=== PATIENT | male | born 1965 | race Caucasian/White ===

== ENCOUNTER 2024-02-26 14:25 | Inpatient (IN) | payer SELFPAY ==
[2024-02-26] VITALS (13 sets, daily range): BP systolic 111–182; BP diastolic 61–123; PULSE 82–110; RESP 16–22; TEMP 36.9–38; O2SAT 92–98; BMI 50.2; BMI 42.3
--- NOTE | 2024-02-26 17:49 | CTR_ITS ---
PROCEDURE INFORMATION: Exam: CT Abdomen And Pelvis With Contrast Exam date and time: 02/26/2024 7:39 PM Age: 58 years old Clinical indication: Other: Abscess; Additional info: Abscess groin TECHNIQUE: Imaging protocol: Computed tomography of the abdomen and pelvis with contrast. Radiation optimization: All CT scans at this facility use at least one of these dose optimization techniques: automated exposure control; mA and/or kV adjustment per patient size (includes targeted exams where dose is matched to clinical indication); or iterative reconstruction. Contrast material: OMNI 350; Contrast volume: 100 ml; Contrast route: INTRAVENOUS (IV); COMPARISON: No relevant prior studies available. RADIATION DOSE METRICS: Total DLP (mGy-cm): 1825 FINDINGS: Liver: There is a diffuse decrease in hepatic parenchymal density, consistent with moderate fatty infiltration. There is no focal abnormality within the liver. Gallbladder and biliary ducts: The gallbladder is normal. Pancreas: The pancreas is normal. Spleen: The spleen is normal. Adrenal glands: The adrenal glands are normal. Kidneys and ureters: The kidneys are normal. There is no evidence of hydronephrosis. There is no evidence of renal or ureteral calcifications. Stomach and bowel: There is no evidence of colitis/diverticulitis. There is no evidence of intestinal obstruction. Appendix: Not identified Intraperitoneal space: There is no evidence of free intraperitoneal fluid. Vasculature: The aorta demonstrates mild atherosclerotic calcification. There is no evidence of an abdominal aortic aneurysm. Lymph nodes: There is some mildly prominent left inguinal lymph nodes measuring up to 11 x 17 mm, likely reactive lymph nodes. There is prominent left external iliac lymph node measuring 11 x 21 mm also likely reactive. Urinary bladder: Unremarkable as visualized. Reproductive: Unremarkable as visualized. Bones/joints: Unremarkable. No acute fracture. Soft tissues: There is some deep soft tissue gas in the left groin area extending into the thigh. Please see report of CT scan of the thigh below. PROCEDURE INFORMATION: Exam: CT Left Lower Extremity, Thigh Exam date and time: 02/26/2024 7:39 PM Age: 58 years old Clinical indication: Other: Abscess; Additional info: Abscess groin TECHNIQUE: Imaging protocol: CT of the left lower extremity with intravenous contrast was performed. Exam focused on the thigh. Radiation optimization: All CT scans at this facility use at least one of these dose optimization techniques: automated exposure control; mA and/or kV adjustment per patient size (includes targeted exams where dose is matched to clinical indication); or iterative reconstruction. COMPARISON: No relevant prior studies available. FINDINGS: Limitations: Lateral aspect of the distal left thigh is cut off including much of the distal left femur. Bones/joints: There is no evidence of fracture or dislocation. Soft tissues: There is some fluid along the deep investing fascia of the anteromedial aspect of the left thigh containing bubbles of air. This is worrisome for necrotizing deep soft tissue infection or necrotizing fasciitis. There is component of the air and fluid collection extending into the subcutaneous soft tissues more anteriorly as well as inflammatory density within the fat and skin thickening in keeping with some cellulitis. The area in question measures up to 7 cm in diameter and [address]/CT abdomen pelvis w con* [id number] IMPRESSION: 1. Left groin and thigh abscess. Please see CT thigh report below. 2. Fatty liver 3. No acute intra-abdominal finding. IMPRESSION: Findings worrisome for necrotizing fasciitis involving the left thigh. COMMENTS: 1. The left thigh which is included on this examination is grossly normal. 2. THIS REPORT CONTAINS FINDINGS THAT MAY BE CRITICAL TO PATIENT CARE. The findings were verbally communicated via telephone conference with ANGELINE MEDRANO at 9:13 PM CDT on 02/26/2024. The findings were acknowledged and understood.
--- NOTE | 2024-02-26 18:01 | ED_ITS ---
HPI - Skin/Abscess/Foreign Bdy 2 General: Chief complaint: Skin/Abscess/Foreign Body Stated complaint: boil that rupture (referral urgent care) Time Seen by Provider: 02/26/24 17:45 History of Present Illness: 58-year-old man with history of morbid o besity who presents emergency room with left inguinal and thigh pain and swelling with drainage. He has a very foul- smelling drainage. I do not see had definitive opening in this but he says it has been draining. He has a large area of induration on his left thigh just below the groin. This appears like it might be expanding up into the groin. Has a temp of 99 on presentation. No known fevers at home. No altered mental status. No focal motor deficits. This been present for about a week now and worsening. Related Data Home Medications Medication Instructions Recorded Confirmed No Known Home Medications 02/26/24 02/26/24 Allergies Allergy/AdvReac Type Severity Reaction Status Date / Time No Known Allergies Allergy Verified 02/26/24 13:38 Review of Systems 2 Narrative: Constitutional symptoms: Negative except as documented in HPI. Skin symptoms: Negative except as documented in HPI. Eye symptoms: Negative except as documented in HPI. ENMT symptoms: Negative except as documented in HPI. Respiratory symptoms: Negative except as documented in HPI. Cardiovascular symptoms: Negative except as documented in HPI. Gastrointestinal symptoms: Negative except as documented in HPI. Genitourinary symptoms: Negative except as documented in HPI. Musculoskeletal symptoms: Negative except as documented in HPI. Neurologic symptoms: Negative except as documented in HPI. Psychiatric symptoms: Negative except as documented in HPI. Endocrine symptoms: Negative except as documented in HPI. PFSH ED 2 PFSH: Social History Smoking and tobacco/nicotine status: never used tobacco/nicotine Physical Exam 2 Narrative: EXAM NARRATIVE: General: Alert, no acute distress. Skin: Warm, dry. In the left thigh and groin area there is a large area of induration redness swelling. Foul-smelling. No obvious drainage at this time. Head: Normocephalic, atraumatic. Neck: Supple, trachea midline. Eye: Extraocular movements are intact. Ears, nose, mouth and throat: mucosa moist. Cardiovascular: Regular, Normal peripheral perfusion. Respiratory: Lungs are clear to auscultation, respirations are non-labored, breath sounds are equal, Symmetrical chest wall expansion. Gastrointestinal: Soft, Nontender, Non distended Musculoskeletal: Normal ROM, no deformity. Neurological: Alert and oriented, No focal neurological deficit observed. Psychiatric: Cooperative, appropriate mood & affect. Course 2 Vital Signs: Vital signs: Vital Signs Temperature 99.0 F 02/26/24 14:30 Pulse Rate 82 02/26/24 19:17 Respiratory Rate 16 02/26/24 19:17 Blood Pressure 133/105 02/26/24 19:17 Pulse Oximetry 92 02/26/24 19:17 Oxygen Delivery Me thod Room Air 02/26/24 19:17 MDM - Skin/Abscess/Foreign Bdy Medicial Decision Making Medical decision making: Differential diagnosis including but not limited to and based on the above HPI, review of systems and physical exam: I have concern for sepsis, cellulitis, abscess, Karan's gangrene. Orders placed to evaluate differential diagnosis based on the above differential, HPI and physical exam Lab Review: Laboratory results were reviewed and interpreted by myself the emergency room physician. Leukocytosis with a white count of 14,000. BUN/creatinine are normal. Sodium is little low at 130. Lactic acid is 2.2. Liver enzymes are normal. CRP is very elevated at 255. CT of the abdomen pelvis and thigh shows a large area of induration with air pockets. This was reviewed and interpreted by myself the emergency room physician. I also reviewed the radiology report. I reviewed the patient's medical record. Reexamination: Patient has remained stable. No increased work of breathing. No altered mental status. Consultation: I spoke with Dr. Metzger who is taken the patient to the OR for incision and drainage. Assessment and plan: Inguinal abscess ?IV vancomycin, IV cefepime, IV normal saline bolus as the patient is n.p.o. at this time and going to surgery. -I discussed the patient with the hospitalist on-call who is admitting the patient. - Discussed findings and plan with patient. Answered any questions. - All laboratory values were reviewed and interpreted personally by myself, the ER physician - All imaging was reviewed and interpreted personally by myself, the ER physician. - Evaluation and treatment of this problem were appropriate in the emergency setting Lab Data 02/26/24 18:04 02/26/24 18:04 Laboratory Results WBC 13.93 10^3/uL (3.29-11.43) H 02/26/24 18:04 RBC 4.77 10^6/uL (3.85-5.65) 02/26/24 18:04 Hgb 13.10 g/dL (11.27-16.99) 02/26/24 18:04 Hct 41.9 % (37-53) 02/26/24 18:04 MCV 87.8 fl (82-101) 02/26/24 18:04 MCH 27.5 pg (27-33) 02/26/24 18:04 MCHC 31.3 g/dL (30-55) 02/26/24 18:04 RDW 13.9 % (12.1-15.1) 02/26/24 18:04 Plt Count 482 10^3/cmm (157-399) H 02/26/24 18:04 MPV 11.2 fL (7.4-10.4) H 02/26/24 18:04 Neut % (Auto) 62.5 % 02/26/24 18:04 Lymph % (Auto) 17.9 % 02/26/24 18:04 Yell % (Auto) 11.0 % 02/26/24 18:04 Eos % (Auto) 0.9 % 02/26/24 18:04 Baso % (Auto) 0.9 % 02/26/24 18:04 Neut # (Auto) 8.71 10^3/uL (1.8-7.7) H 02/26/24 18:04 Lymph # (Auto) 2.5 10^3/uL (0.8-4.8) 02/26/24 18:04 Yell # (Auto) 1.5 10^3/uL (0.2-0.9) H 02/26/24 18:04 Eos # (Auto) 0.1 10^3/uL (0.0-0.8) 02/26/24 18:04 Baso # (Auto) 0.1 10^3/uL (0.0-0.1) 02/26/24 18:04 Nucleated RBC % (auto) 0 % 02/26/24 18:04 Nucleated RBCs # 0.0 /100WBC 02/26/24 18:04 ESR 90 mm/hr (0-10) H 02/26/24 18:04 Sodium 130 mmol/L (136-145) L 02/26/24 18:04 Potassium 4.0 mmol/L (3.5-5.1) 02/26/24 18:04 Chloride 92 mmol/L (98-107) L 02/26/24 18:04 Carbon Dioxide 26 mmol/L (22-29) 02/26/24 18:04 Anion Gap 16.0 (5-19) 02/26/24 18:04 BUN 12 mg/dL (6-20) 02/26/24 18:04 Creatinine 0.8 mg/dL (0.7-1.2) 02/26/24 18:04 GFR Calculation 100.0 mL/min (90-130) 02/26/24 18:04 Glucose 126 mg/dL (65-115) H 02/26/24 18:04 Calculated Osmolality 271 mOsm/kg (285-295) L 02/26/24 18:04 Lactic Acid 2.2 mmol/L (0.5-2.2) 02/26/24 18:04 Calcium 8.2 mg/dL (8.5-10.5) L 02/26/24 18:04 Total Bilirubin 0.5 mg/dL (0.15-1.2) 02/26/24 18:04 AST 30 U/L (0-40) 02/26/24 18:04 ALT 38 U/L (0-41) 02/26/24 18:04 Alkaline Phosphatase 79 U/L (40-130) 02/26/24 18:04 C-Reactive Protein 254.6 mg/L (0.0-4.9) H 02/26/24 18:04 Total Protein 7.1 g/dL (6.6-8.7) 02/26/24 18:04 Albumin 2.9 g/dL (3.5-5.2) L 02/26/24 18:04 Globulin 4.2 g/dL (1.3-4.6) 02/26/24 18:04 XR interpretation done by ED provider, pending radiology final review Discharge Plan Discharge Patient Disposition: Admitted As Inpatient Admit Provider: Juan Dumont Clinical Impression: Inguinal abscess, Morbid obesity Condition: Stable Coding Level of Care Code ED Events Associate for Jose De La Torre
[2024-02-26 18:22] LABS: Basophils # 0.1 10^3/uL (0.0-0.1); Basophils % 0.9 %; Eosinophils # 0.1 10^3/uL (0.0-0.8); Eosinophils % 0.9 %; Hematocrit 41.9 % (37-53); Lymphocytes # 2.5 10^3/uL (0.8-4.8); Lymphocytes % 17.9 %; Mean Corpuscular HGB Conc 31.3 g/dL (30-55); Mean Corpuscular Hemoglobin 27.5 pg (27-33); Mean Corpuscular Volume 87.8 fl (82-101); Mean Platelet Volume 11.2 fL (7.4-10.4); Monocytes # 1.5 10^3/uL (0.2-0.9); Neutrophils # 8.71 10^3/uL (1.8-7.7); Neutrophils % 62.5 %; Nucleated Red Blood Cells % 0 %; Platelet Count 482 10^3/cmm (157-399); Red Blood Count 4.77 10^6/uL (3.85-5.65); Red Cell Distribution Width 13.9 % (12.1-15.1); White Blood Count 13.93 10^3/uL (3.29-11.43)
[2024-02-26 18:31] LABS: Alanine Aminotransferase 38 U/L (0-41); Albumin Level 2.9 g/dL (3.5-5.2); Alkaline Phosphatase 79 U/L (40-130); Aspartate Amino Transferase 30 U/L (0-40); Blood Urea Nitrogen 12 mg/dL (6-20); C Reactive Protein 254.6 mg/L (0.0-4.9); Calcium 8.2 mg/dL (8.5-10.5); Carbon Dioxide 26 mmol/L (22-29); Chloride 92 mmol/L (98-107); Creatinine Clr Calc Pharmacy 161.1418; Globulin 4.2 g/dL (1.3-4.6); Glucose 126 mg/dL (65-115); Osmolality Calculated 271 mOsm/kg (285-295); Sodium 130 mmol/L (136-145); Total Bilirubin 0.5 mg/dL (0.15-1.2); Total Protein 7.1 g/dL (6.6-8.7)
[2024-02-26 18:32] LABS: Lactic Sepsis W/Reflex 2.2 mmol/L (0.5-2.2)
[2024-02-26 18:52] LABS: Slide Review Slide Review Perform
[2024-02-26 18:59] LABS: Erythrocyte Sedimentation Rate 90 mm/hr (0-10)
--- NOTE | 2024-02-26 19:20 | PC.NURSE ---
meds late due to needing an u/s iv
[2024-02-26] MEDS: cefepime 2,000 MG in sodium chloride 0.9% (plus) 50 ML 100 MG IV (19:50)
[2024-02-26] MEDS: vancomycin 1,500 MG/300 ML PIGGYBACK 200 MG IV (19:50)
[2024-02-26] MEDS: iohexol 350 mg/mL 500 mL Btl (per mL) IV (19:52)
[2024-02-26 19:57] LABS: Reflex Lactate Order REFLEX LACTIC ORDERD
--- NOTE | 2024-02-26 20:25 | P.HP_ITS ---
Providers/Chief Complaint 2 Chief Complaint: boil that rupture (referral urgent care) History of Present Illness Wero Hurd is a 58 year old male with history of morbid obesity but no other medical problems who presents to the ER complaining of boil in the left groin/left thigh, patient notices the boils about 9 days ago for the last 2 to 3 days he has been taking doxycycline that he had a from a previous prescription, it has been draining and has been getting worse and therefore he decided to present. In the ED workup showed evidence of elevated CRP elevated white count and a CT scan that showed evidence of extensive soft tissue stranding with there in the soft tissue of the left upper thigh tracking to the level of the groin and in the lower aspect to the middle third of the thigh. Review of Systems 2 General: Reports: 10 or more systems reviewed and unremarkable except in HPI and below Medications/Allergies Home Medications Medication Instructions Recorded Confirmed Last Taken Type No Known Home Medications 02/26/24 02/26/24 Unknown History Allergies Allergy/AdvReac Type Severity Reaction Status Date / Time No Known Allergies Allergy Verified 02/26/24 13:38 PFSH Acute 2 PFSH: Social History Smoking and tobacco/nicotine status: never used tobacco/nicotine Vitals/I&O/Wt Last Vital Signs Temp 99.0 F 02/26/24 14:30 Pulse 82 02/26/24 19:17 Resp 16 02/26/24 19:17 BP 133/105 02/26/24 19:17 Pulse Ox 92 02/26/24 19:17 O2 Del Method Room Air 02/26/24 19:17 Weight last 48 hrs Weight 360 lb Physical Exam 2 Narrative: General : Patient is well developed , no acute distress, oriented x3 Head : Normal cephalic, a-traumatic. Nose : Mucous membranes are without erythema. Lungs : Equal chest rise bilaterally, no use of accessory muscles, trachea is midline. CV : Rate and rhythm are normal. Abdomen : Soft, ND, NT, no g/r/m Extremities : Left lower extremity there is erythema and edema on an area of about 15 x 15 cm at the level of the left side where it joins with the groin. There are some fluctuance at that level. Back : non-tender to palpation, no CVA tenderness. Data 02/26/24 18:04 10/10/24 18:04 Micro: Microbiology 02/26/24 19:35 Blood Culture - Preliminary Blood SPECIMEN COLLECTED 02/26/24 19:38 Blood Culture - Preliminary Blood SPECIMEN COLLECTED A&P Assessment and plan (1) Inguinal abscess: (2) Soft tissue infection: Plan After complete history, physical examination and review of all available l clinical data the following is my assessment. This a 58-year-old male with morbid obesity who presents with soft tissue infection of the left groin, there is concern for the possibility of gas-forming organisms as there is extensive soft tissue air and only a small puncture noted on the mid portion of the thigh in physical examination. White count is 13 CRP is more than 200. With this findings I think it will be imperative to proceed to the operating room for wide debridement and washout of this area. I discussed all recent benefits with the patient including the risk of injury to adjacent structures including the great saphenous vein, neurovascular bundle to the leg, musculature, nerves, need for additional interventions, progressing necrotizing infection, sepsis, need for long-term antibiotics, poor wound healing, recurrent infection. Patient shows understanding and wishes to proceed. We will immediately proceed to the OR, patient will receive broad-spectrum antibiotics and will remain as inpatient after surgery. -On-call to OR -Pain control as needed -Broad-spectrum antibiotics -Morning labs -Will likely obtain infectious diseases input in the morning. Attestations 2 Medical Necessity Statement*: Patient will require 3 to 5 days of hospital stay for soft tissue infection of the left lower extremity. Coding Level of Care Code 29526 Diagnoses Inguinal abscess L02.214 Soft tissue infection L08.9
[2024-02-26] MEDS: sodium chloride 0.9% 1,000 ML 999 ML IV (20:30)
[2024-02-26 21:11] LABS: Lactic Acid level (Lactate) 1.7 mmol/L (0.5-2.2)
--- NOTE | 2024-02-26 21:37 | ANES.PREANE2 ---
Pre-Anesthetic Assessment Height/Weight: Height 1.8 m Weight 163.293 kg Temp Pulse Resp BP Pulse Ox O2 Del Method 99.0 F 105 H 16 182/123 95 Room Air 02/26/24 14:30 02/26/24 21:15 02/26/24 21:15 02/26/24 21:15 02/26/24 21:15 02/26/24 19:17 Preop Diagnosis: Groin Abscess Operation Date: 02/26/24 20:15 Proposed Procedures p Debridement(Not Applicable) - Juan Dumont MD Familial anesthetic complications: none Was Beta Rubia taken within 24 hours: N/A Was Clonidine taken within 24 hours: N/A Last intake: Meal 02/25/24 1500 Liquids 02/26/24 1600 water. Social Alcohol (3-4 beers per day up until November 2023.) Exam alert, oriented x 3, clear to auscultation bilaterally and regular rate & rhythm Airway Submandibular: within normal limits Cervical ROM: within normal limits Mallampati: Class II Dentition: full Comments: Comments: bearded Pulmonary Sleep Apnea (suspected patient denies) and None reported CV/HEM Hypertension (patient denies) 183/123 in preoperative phase. None reported Hepatic None reported GI None reported Metabolic Morbid [place] [facility] [place] None reported Neuropsych None reported Anesthetic Plan ASA status: 3E Anesthesia: General Medications/Allergies Home Medications Medication Instructions Recorded Confirmed Last Taken Type No Known Home Medications 02/26/24 02/26/24 Unknown History Allergies Allergy/AdvReac Type Severity Reaction Status Date / Time No Known Allergies Allergy Verified 02/26/24 13:38 ON LICENSE OF [facility] Anesthesia Social History Smoking and tobacco/nicotine status: never used tobacco/nicotine Data Anesthesia 02/26/24 18:04 02/26/24 18:04 Short CBC 02/26/24 Range/Units 18:04 WBC 13.93 H (3.29-11.43) 10^3/uL Hgb 13.10 (11.27-16.99) g/dL Hct 41.9 (37-53) % MCV 87.8 (82-101) fl Plt Count 482 H (157-399) 10^3/cmm Neut % (Auto) 62.5 % Neut # (Auto) 8.71 H (1.8-7.7) 10^3/uL BMP 02/26/24 18:04 Sodium 130 L Potassium 4.0 Chloride 92 L Carbon Dioxide 26 BUN 12 Creatinine 0.8 Glucose 126 H Calcium 8.2 L Liver Function 02/26/24 Range/Units 18:04 Total Bilirubin 0.5 (0.15-1.2) mg/dL AST 30 (0-40) U/L ALT 38 (0-41) U/L Alkaline Phosphatase 79 (40-130) U/L Albumin 2.9 L (3.5-5.2) g/dL Coags 02/26/24 18:04 ESR 90 H C-Reactive Protein 254.6 H Microbiology 02/26/24 19:35 Blood Culture - Preliminary Blood SPECIMEN COLLECTED 02/26/24 19:38 Blood Culture - Preliminary Blood SPECIMEN COLLECTED Cardiac Studies: No Data to Display
--- NOTE | 2024-02-26 22:47 | PM.OP ---
Operative Report Date of procedure: February 26, 2024 Pre-op diagnosis: Left thigh abscess Post-op diagnosis: Necrotizing soft tissue infection of the left lower extremity Post-op findings: On the left lower extremity on the medial upper thigh almost at the level of the groin there was a large abscess cavity containing almost 150 cc of purulent fluid, the cavity tracked deep into the tissue to the level of the muscle and the fascia, the tissue appeared devitalized at this level, with healthy muscle underneath, the abscess cavity had dissected into the tissue and around the fat pad containing the great saphenous vein. Procedure done: Incision, drainage, debridement and washout of left lower extremity soft tissue infection Specimens removed/disposition: Wound cultures Surgeon: Juan Dumont MD Complications: None apparent Brief History: 58-year-old male with a left lower extremity soft tissue infection with CT scan findings concerning for air in the tissue. After discussion of all the risks and benefits with side to proceed to the OR for debridement and washout. Procedure: Patient was brought into the OR, he was placed in a supine position. General anesthesia was given. The left lower extremity was prepped and draped in the usual sterile fashion. Timeout was conducted. I made a 10 cm incision on the upper medial thigh in the area of greatest induration, the incision was deepened until the abscess cavity was accessed, wound cultures were obtained. Purulent fluid was evacuated, almost 150 cc were obtained. I then proceeded to bluntly break loculations, the wound track magdi on the medial aspect up to the level of the groin and in the lower aspect home ostomy tied. The fat pad containing the great saphenous vein that had been dissected by the fluid and there was a fluid pocket anterior to this fat pad and 1 posterior, once I was able to evacuate all the abscess cavities I proceeded to irrigate the wound with a Pulsavac using 3 L of saline. Hemostasis was then obtained, the wound was then packed with Betadine soaked gauze taking careful consideration or occupying all the spaces even in the deep pockets of the wound. A sterile dressing was applied. At the end of the procedure all counts were correct, the patient tolerated well the procedure and was transferred to the PACU in stable condition.
--- NOTE | 2024-02-26 23:22 | SUR.PREOP ---
2109 Inadvertantly documented wrong blood pressure at 2104. All other vital signs belong to this patient. Correct blood pressure was 166/103.
--- NOTE | 2024-02-26 23:25 | ANE.PACU2 ---
Inpatient post-anesthesia follow up: Airway intact: Yes Vital signs: Temperature 97.8 F Pulse Rate 74 Respiratory Rate 18 Blood Pressure 113/70 Pulse Oximetry 96 Oxygen Delivery Me thod Room Air Oxygen Flow Rate 2 Fraction of Inspir ed Oxygen Hydration adequate: Yes Nausea and vomiting: No Pain level: 1 Mental status: Baseline
[2024-02-27] VITALS (9 sets, daily range): BP systolic 106–125; BP diastolic 60–77; PULSE 74–99; RESP 16–18; TEMP 36.4–36.9; O2SAT 90–97
[2024-02-27] MEDS: ketorolac 30 mg/mL INJ 15 MG IVP ×5 (00:18→23:32)
[2024-02-27] MEDS: HYDROmorphone 1 mg/mL INJ 1 mL 0.4 MG IVP ×2 (00:18→18:51)
[2024-02-27] MEDS: piperacillin-tazobactam 4.5 GM in sodium chloride 0.9% (plus) 50 ML IV ×3 (00:41→17:55)
[2024-02-27] MEDS: lactated ringers 1,000 ML 100 ML IV ×2 (00:42→09:27)
[2024-02-27 05:18] LABS: Basophils # 0.1 10^3/uL (0.0-0.1); Basophils % 0.8 %; Eosinophils % 0.1 %; Hematocrit 41.2 % (37-53); Lymphocytes # 1.5 10^3/uL (0.8-4.8); Lymphocytes % 10.9 %; Mean Corpuscular HGB Conc 31.6 g/dL (30-55); Mean Corpuscular Volume 88.6 fl (82-101); Monocytes % 6.9 %; Neutrophils # 10.48 10^3/uL (1.8-7.7); Neutrophils % 75.3 %; Nucleated Red Blood Cells % 0 %; Platelet Count 517 10^3/cmm (157-399); Red Blood Count 4.65 10^6/uL (3.85-5.65)
[2024-02-27 05:34] LABS: Anion Gap 15.8 (5-19); Blood Urea Nitrogen 13 mg/dL (6-20); Carbon Dioxide 27 mmol/L (22-29); Creatinine Clr Calc Pharmacy 143.7847; Phosphorus 4.2 mg/dL (2.5-4.5); Potassium 4.8 mmol/L (3.5-5.1)
[2024-02-27 05:44] LABS: Calcium 8.1 mg/dL (8.5-10.5)
[2024-02-27 05:46] LABS: Slide Review Slide Review Perform
[2024-02-27 05:47] LABS: Chloride 96 mmol/L (98-107); Glucose 198 mg/dL (65-115); Magnesium 2.5 mg/dL (1.7-2.3); Osmolality Calculated 284 mOsm/kg (285-295); Sodium 134 mmol/L (136-145)
[2024-02-27] MEDS: pantoprazole 40 mg SDV IVP (05:55)
--- NOTE | 2024-02-27 08:30 | P.PHAVANC_ITS ---
Vancomycin Goal - Goal Vancomycin Goal:: 10-15 mg/L Vancomycin Indication:: SSTI - Therapy Current therapy:: Pip/Tazo Day of therpy:: Day []of [] . Actual body weight (kg): 294 lb 6.4 oz Bernard body weight: 75.3 Dosing weight (kg): 95.58 - Data Labs: WBC 13.90 10^3/uL (3.29-11.43) H 02/27/24 04:50 RBC 4.65 10^6/uL (3.85-5.65) 02/27/24 04:50 Hgb 13.00 g/dL (11.27-16.99) 02/27/24 04:50 Hct 41.2 % (37-53) 02/27/24 04:50 MCV 88.6 fl (82-101) 02/27/24 04:50 MCH 28.0 pg (27-33) 02/27/24 04:50 MCHC 31.6 g/dL (30-55) 02/27/24 04:50 RDW 14.0 % (12.1-15.1) 02/27/24 04:50 Sodium 134 mmol/L (136-145) L 02/27/24 04:50 Potassium 4.8 mmol/L (3.5-5.1) 02/27/24 04:50 Chloride 96 mmol/L (98-107) L 02/27/24 04:50 Carbon Dioxide 27 mmol/L (22-29) 02/27/24 04:50 Anion Gap 15.8 (5-19) 02/27/24 04:50 BUN 13 mg/dL (6-20) 02/27/24 04:50 Creatinine 0.8 mg/dL (0.7-1.2) 02/27/24 04:50 GFR Calculation 100.0 mL/min (90-130) 02/27/24 04:50 Last dialysis session:: N/A Treatment plan:: new consult Regimen:: INITIAL DOSE 2000 MG Q12H Follow up:: WILL CONTINUE TO MONITOR AND FOLLOW UP DAILY
[2024-02-27] MEDS: vancomycin 2,000 MG/400 ML PIGGYBACK 200 MG IV ×2 (09:27→20:52)
--- NOTE | 2024-02-27 09:54 | P.PN_ITS ---
Subjective 2 Subjective: Patient is postoperative day 0 status post debridement and washout of left lower extremity necrotizing soft tissue infection. Patient is doing okay, has remained afebrile overnight, no significant pain. Vitals/I&O/Wt Last Vital Signs Temp 97.6 F 02/27/24 08:00 Pulse 76 02/27/24 08:00 Resp 16 02/27/24 08:00 BP 113/76 02/27/24 08:00 Pulse Ox 95 02/27/24 08:00 O2 Del Method Room Air 02/27/24 02:45 O2 Flow Rate 2 02/27/24 00:15 02/26/24 02/27/24 02/27/24 22:59 06:59 14:59 Intake Total 550 / 550 1150 / 1700 1115 / 1115 Output Total 5 / 5 700 / 705 525 / 525 Balance 545 / 545 450 / 995 590 / 590 Weight last 48 hrs Weight 294 lb 6.4 oz Weight 303 lb Weight 360 lb Physical Exam 2 Extremity: NARRATIVE EXTREMITY EXAM: Improvement of the erythema and edema the wound is packed with Betadine soaked gauze. Data 02/27/24 04:50 02/27/24 04:50 Micro: Microbiology 02/26/24 19:35 Blood Culture - Preliminary Blood SPECIMEN COLLECTED 02/26/24 19:38 Blood Culture - Preliminary Blood SPECIMEN COLLECTED A&P Assessment and plan (1) Soft tissue infection: (2) Morbid obesity: (3) Inguinal abscess: Plan Patient is having good progression after a debridement and washout of a necrotizing soft tissue infection of the left lower extremity. Laboratory workup shows a stable white count of 13, he has been afebrile since yesterday, no significant pain. Will continue broad-spectrum antibiotics until results from sensitivities are back, we will plan to return back to the OR for a washout debridement and possible wound VAC placement tomorrow morning. I discussed with the patient all recent benefits of the operation including the risk of bleeding, infection, need for additional interventions need for extensive debridement. He shows understanding is agreeable to proceed. Attestations 2 Medical Necessity Statement*: Patient will require 48 to 72 hours of hospital stay for IV antibiotics and wound care management for NSTI. Coding Level of Care Code Acute Code for [facility] Diagnoses Soft tissue infection L08.9 Morbid obesity E66.01 Inguinal abscess L02.214
--- NOTE | 2024-02-27 10:30 | PC.CHAP ---
Pastoral Care Encounter/Spiritual Assessment Type of Contact [] Declined mid level business analyst visit [] Patient/Family/Request visit [] Outpatient visit [] Follow-up visit [] Physician referral [] Code/Alert [x] Routine visit [] Staff referral [] Actively dying [] Patient sleeping [] Family support [] [] Out of room [] Palliative care [] [] Receiving care in room [] Pre-surgical visit [] Trauma [] Long length of stay [] ICU visit [] Other: Relational/Emotional Strength [x] Patient feels connected with others/family/visitors/staff [] Distress [] Loneliness/isolation [] Abandonment Spirituality of Patient [x] Person of [place] [] Attends Buddhist of their [place] [] Believes in Prayer [] Reads Bible or Restorationist materials [] There are Spiritual issues to be addressed Clinical Educator Interventions [x] Prayer [] Active listening [] Non-anxious presence [] Spiritual/emotional support [] Crisis/trauma care [] Spiritual counseling [] Bereavement support [] Provided bereavement packet [] Provided Bible/devotional materials [] Provided toy/stuffed animal, coloring book to patient or family member [] Provided Communion [] Anointing/[place] [] Salvation [] Completed spiritual assessment [] Other: Impact on Illness or Injury [] Angry [] Fearful [] Anxious [] Often cries [] Exhaustion [] Unable to work [] Unable to attend adventism [] Unable to walk/stand [] Unable to read [] Unable to drive [] Unable to eat/drink [] Unable to sleep [] Unable to be with family [] Patient intubated [] Other: Summary Time spent with patient 10min
[2024-02-27] MEDS: zolpidem 5 mg Tablet PO (23:33)
[2024-02-28] VITALS (16 sets, daily range): BP systolic 101–139; BP diastolic 70–98; PULSE 82–99; RESP 14–20; TEMP 36.1–37; O2SAT 91–98
[2024-02-28] MEDS: piperacillin-tazobactam 4.5 GM in sodium chloride 0.9% (plus) 50 ML IV (01:20)
[2024-02-28 05:47] LABS: Basophils # 0.1 10^3/uL (0.0-0.1); Basophils % 0.7 %; Eosinophils # 0.2 10^3/uL (0.0-0.8); Eosinophils % 1.7 %; Hematocrit 40.4 % (37-53); Lymphocytes # 2.4 10^3/uL (0.8-4.8); Lymphocytes % 19.8 %; Mean Corpuscular HGB Conc 30.7 g/dL (30-55); Mean Corpuscular Hemoglobin 27.6 pg (27-33); Mean Corpuscular Volume 89.8 fl (82-101); Mean Platelet Volume 9.9 fL (7.4-10.4); Monocytes % 8.6 %; Neutrophils # 7.53 10^3/uL (1.8-7.7); Neutrophils % 63.4 %; Nucleated Red Blood Cells % 0 %; Platelet Count 546 10^3/cmm (157-399); White Blood Count 11.87 10^3/uL (3.29-11.43)
[2024-02-28] MEDS: pantoprazole 40 mg SDV IVP (05:48)
[2024-02-28] MEDS: ketorolac 30 mg/mL INJ 15 MG IVP ×4 (05:49→23:39)
[2024-02-28 06:02] LABS: Estmated Average Glucose 151; Hemoglobin A1C 6.9 % (4.0-6.0)
[2024-02-28 06:04] LABS: Anion Gap 14.1 (5-19); Blood Urea Nitrogen 16 mg/dL (6-20); Calcium 7.7 mg/dL (8.5-10.5); Carbon Dioxide 29 mmol/L (22-29); Chloride 101 mmol/L (98-107); Creatinine Clr Calc Pharmacy 141.1387; Glucose 154 mg/dL (65-115); Magnesium 2.2 mg/dL (1.7-2.3); Osmolality Calculated 294 mOsm/kg (285-295); Phosphorus 3.9 mg/dL (2.5-4.5); Potassium 4.1 mmol/L (3.5-5.1); Sodium 140 mmol/L (136-145)
[2024-02-28 06:08] LABS: Slide Review Slide Review Perform
[2024-02-28 06:09] LABS: C Reactive Protein 128.4 mg/L (0.0-4.9)
--- NOTE | 2024-02-28 07:19 | P.ANESASSM_ITS ---
Pre-Anesthetic Assessment Height/Weight: Height 5 ft 11 in Weight 284 lb 6.4 oz Temp Pulse Resp BP Pulse Ox O2 Del Method O2 Flow Rate 97.9 F 85 15 101/70 97 Room Air 2 02/28/24 04:00 02/28/24 04:00 02/28/24 04:00 02/28/24 04:00 02/28/24 04:00 02/28/24 04:00 02/27/24 00:15 Preop Diagnosis: Groin Abscess Operation Date: 02/26/24 20:15 Proposed Procedures p Debridement(Not Applicable) - Juan Dumont MD Operation Date: 02/28/24 08:50 Proposed Procedures p Incision And Drainage, Washout, poss wound vac placement lower Extremity(Left) - Juan Dumont MD Was Beta Rubia taken within 24 hours: N/A Was Clonidine taken within 24 hours: N/A Last intake: Intake Last Liquid Date 02/27/24 Last Liquid Time 23:59 Last Solid Date 02/28/24 Last Solid Time 17:00 Social No tobacco 3-4 beers per day until November 2023 Exam alert, oriented x 3, clear to auscultation bilaterally and regular rate & rhythm Airway Submandibular: within normal limits Cervical ROM: within normal limits Mallampati: Class II Dentition: full and other (Large jenkins present) Anesthetic Plan ASA status: 3 Anesthesia: General Other: No prior issues with anesthesia Patient recently had groin washout under general anesthesia without issues NPO since 8 PM last night BMI 39.7 Prior chronic alcohol use, quit in November 2023 Labs 02/28/2024 reviewed and acceptable for procedure Plan for general anesthesia Medications/Allergies Home Medications Medication Instructions Recorded Confirmed Last Taken Type No Known Home Medications 02/26/24 02/27/24 Unknown History Allergies Allergy/AdvReac Type Severity Reaction Status Date / Time No Known Allergies Allergy Verified 02/26/24 13:38 Current Medications Generic Name Dose Route Start Last Admin Trade Name Freq PRN Reason Stop Dose Admin Hydromorphone HCl 0.4 mg 02/26/24 23:51 02/27/24 18:51 Hydromorphone 1 Mg/Ml Inj 1 Ml IVP 0.4 mg Q4H PRN Administration BREAKTHROUGH PAIN Lactated Ringer's 1,000 mls @ 100 mls/hr 02/26/24 23:51 02/28/24 05:41 Lactated Ringers IV 100 mls/hr .Q10H HERI Infusion Piperacillin Sod/Tazobactam 50 mls @ 12.5 mls/hr 02/27/24 01:00 02/28/24 05:41 Sod 4.5 gm/ Sodium Chloride IV Infused Q8H HERI Infusion Protocol Vancomycin HCl 2,000 mg in 400 mls @ 200 mls/hr 02/27/24 08:00 02/27/24 23:12 Vancocin IV Infused Q12H HERI Infusion Ketorolac Tromethamine 15 mg 02/27/24 00:30 02/28/24 05:49 Ketorolac 30 Mg/Ml Inj IVP 03/03/24 00:29 15 mg Q6H HERI Administration Pantoprazole Sodium 40 mg 02/27/24 06:00 02/28/24 05:48 Pantoprazole 40 Mg Sdv IVP 40 mg Q24H HERI Administration Zolpidem Tartrate 5 mg 02/27/24 23:16 02/27/24 23:33 Zolpidem 5 Mg Tablet PO 5 mg BEDTIME PRN Administration INSOMNIA PFSH Anesthesia Social History Smoking and tobacco/nicotine status: never used tobacco/nicotine Data Anesthesia 02/28/24 05:17 02/28/24 05:17 Short CBC 02/26/24 02/27/24 02/28/24 Range/Units 18:04 04:50 05:17 WBC 13.93 H 13.90 H 11.87 H (3.29-11.43) 10^3/uL Hgb 13.10 13.00 12.40 (11.27-16.99) g/dL Hct 41.9 41.2 40.4 (37-53) % MCV 87.8 88.6 89.8 (82-101) fl Plt Count 482 H 517 H 546 H (157-399) 10^3/cmm Neut % (Auto) 62.5 75.3 63.4 % Neut # (Auto) 8.71 H 10.48 H 7.53 (1.8-7.7) 10^3/uL BMP 02/26/24 02/27/24 02/28/24 18:04 04:50 05:17 Sodium 130 L 134 L 140 Potassium 4.0 4.8 4.1 Chloride 92 L 96 L 101 Carbon Dioxide 26 27 29 BUN 12 13 16 Creatinine 0.8 0.8 0.8 Glucose 126 H 198 H 154 H Calcium 8.2 L 8.1 L 7.7 L Liver Function 02/26/24 Range/Units 18:04 Total Bilirubin 0.5 (0.15-1.2) mg/dL AST 30 (0-40) U/L ALT 38 (0-41) U/L Alkaline Phosphatase 79 (40-130) U/L Albumin 2.9 L (3.5-5.2) g/dL Coags 02/26/24 02/28/24 18:04 05:17 ESR 90 H C-Reactive Protein 254.6 H 128.4 H Microbiology 02/26/24 19:35 Blood Culture - Preliminary Blood NEGATIVE TO DATE 02/26/24 19:38 Blood Culture - Preliminary Blood NEGATIVE TO DATE 02/26/24 22:20 Gram Stain - Final Leg - Left Cardiac Studies: 2 No Data to Display
--- NOTE | 2024-02-28 07:26 | PC.NURSE ---
Surgery team took pt to surgical pre-op @ 0720, followed pt to surgery area.
--- NOTE | 2024-02-28 07:42 | PC.NURSE ---
pt to the or at approx. 0736
[2024-02-28] MEDS: sodium chloride 0.9% 1,000 ML 30 ML IV (08:33)
[2024-02-28] MEDS: vancomycin 2,000 MG/400 ML PIGGYBACK 200 MG IV ×2 (08:59→20:55)
--- NOTE | 2024-02-28 09:50 | P.OP_ITS ---
Operative Report Date of procedure: February 28, 2024 Pre-op diagnosis: Left thigh abscess Post-op diagnosis: Left lower extremity necrotizing soft tissue infection Post-op findings: There was some purulence draining from the inguinal area on the superior aspect of the wound, the fascia of the adductor muscle at the upper medial aspect of the wound appeared devitalized, this was excised sharply and sent to pathology for tissue culture Procedure done: Washout and debridement of left lower extremity necrotizing soft tissue infection Specimens removed/disposition: Tissue samples for culture Surgeon: Juan Dumont MD Production Control Technologist: Tiffani Or staff Estimated blood loss: 10 Brief History: 58-year-old male with necrotizing soft tissue infection of the left lower extremity we will proceed with a washout and possible wound VAC placement. Procedure: Patient was placed in the supine position, general anesthesia was given, the left lower extremity was prepped and draped in the usual sterile fashion after the outer dressing was removed. A timeout was conducted. The inner dressing was removed, once the complete dressing was removed there was a small pocket of purulence in the upper medial aspect of the wound tracking up to the level of t he groin, the rest of the tissue appear healthy but at this level the fascia of the adductor muscle was devitalized, I proceeded to evacuate the abscess I washed out the cavity with 2 L of saline and I sharply debrided this fascia of the adductor muscle, the specimen was sent for tissue culture. Once the cavity was completely clean hemostasis was verified and then I proceeded to pack the cavity with Kerlix soaked in Betadine. A compressive dressing was then applied. At the end of the procedure all counts were correct the patient tolerated well the procedure and was transferred to the PACU in stable condition. Plan is to return to the OR tomorrow for additional washout and possible wound VAC placement.
--- NOTE | 2024-02-28 09:54 | P.PN_ITS ---
Subjective 2 Subjective: 58-year-old male postoperative day 1 sta tus post debridement and washout of left lower extremity necrotizing soft tissue infection. Patient is doing okay complains of some pressure sensation at the level of the leg better and that feeling much better. Vitals/I&O/Wt Last Vital Signs Temp 98.5 F 02/28/24 07:45 Pulse 82 02/28/24 07:45 Resp 20 H 02/28/24 07:45 BP 128/88 02/28/24 07:45 Pulse Ox 98 02/28/24 07:45 O2 Del Method Room Air 02/28/24 07:45 O2 Flow Rate 2 02/27/24 00:15 02/27/24 02/28/24 02/28/24 22:59 06:59 14:59 Intake Total 580 / 2566.667 625 / 3191.667 Balance 580 / 1641.667 625 / 2266.667 Weight last 48 hrs Weight 284 lb 6.4 oz Weight 294 lb 6.4 oz Weight 303 lb Weight 360 lb Physical Exam 2 Extremity: OTHER: Reason for left lower extremity covered with dressing, decrease in the size of the erythema and there is much less edema of the tissue. Data 02/28/24 05:17 02/28/24 05:17 Micro: Microbiology 02/26/24 19:35 Blood Culture - Preliminary Blood Staphylococcus epidermidis 02/26/24 19:38 Blood Culture - Preliminary Blood NEGATIVE TO DATE 02/26/24 22:20 Gram Stain - Final Leg - Left A&P Assessment and plan (1) Morbid obesity: (2) Soft tissue infection: (3) Diabetes: Plan I had extensive discussion with the patient this morning before proceeding to the OR, informed the patient that as part of the evaluation that we did we obtain hemoglobin A1c which came back at 6.9 in addition his glucose levels have been around 1 58-1 60, this is diagnostic for diabetes, with this new finding I proceeded to discuss the case with the medical group and they Kindly agreed to see the patient and guide management of the diabetes. Overall he is improving has not had any fever the white count has trended down and the CRP has also trending down, despite this during OR procedure there was still an ABSCESS NOTED IN AN AREA THAT WAS PREVIOUSLY DRAINED, DUE TO THIS FINDING I HAVE DECIDED TO UPGRADE HIS ANTIBIOTIC FROM ZOSYN TO MEROPENEM to ensure broad coverage until cultures are ready. Plan is to return to the OR tomorrow for additional washout and possible wound VAC placement if tissue appears to be healthy. Attestations 2 Medical Necessity Statement*: Patient will require 48 to 72 hours of hospital stay for continued management of necrotizing soft tissue infection of the left lower extremity in the setting of a newly diagnosed diabetes Coding Level of Care Code [facility] Diagnoses Morbid obesity E66.01 Soft tissue infection L08.9 Diabetes E11.9
--- NOTE | 2024-02-28 10:38 | ANE.PACU2 ---
Inpatient post-anesthesia follow up: Airway intact: Yes Vital signs: Temperature 97.8 F Pulse Rate 93 Respiratory Rate 19 Blood Pressure 109/82 Pulse Oximetry 92 Oxygen Delivery Me thod Room Air Oxygen Flow Rate 6 Fraction of Inspir ed Oxygen Hydration adequate: Yes Nausea and vomiting: No Pain level: 1 Mental status: Baseline
--- NOTE | 2024-02-28 11:52 | PC.NURSE ---
pt rufes accu check
[2024-02-28] MEDS: lactated ringers 1,000 ML 100 ML IV (12:20)
[2024-02-28] MEDS: meropenem 1,000 mg SDV 1000 MG IVP ×2 (12:21→18:40)
[2024-02-28] MEDS: HYDROmorphone 1 mg/mL INJ 1 mL 0.4 MG IVP ×2 (18:51→23:42)
[2024-02-28 19:39] LABS: Vancomycin Trough 11.8 ug/mL (10-15)
[2024-02-28] MEDS: zolpidem 5 mg Tablet PO (20:55)
[2024-02-29] VITALS (15 sets, daily range): BP systolic 111–147; BP diastolic 66–93; PULSE 81–92; RESP 12–20; TEMP 36.1–37.1; O2SAT 92–100
[2024-02-29] MEDS: meropenem 1,000 mg SDV 1000 MG IVP ×3 (03:10→20:48)
[2024-02-29] MEDS: lactated ringers 1,000 ML 100 ML IV ×2 (04:22→18:06)
[2024-02-29 05:32] LABS: Basophils # 0.1 10^3/uL (0.0-0.1); Basophils % 0.8 %; Eosinophils # 0.3 10^3/uL (0.0-0.8); Eosinophils % 2.4 %; Hematocrit 39.4 % (37-53); Lymphocytes % 25.5 %; Mean Corpuscular HGB Conc 29.7 g/dL (30-55); Mean Corpuscular Hemoglobin 27.7 pg (27-33); Mean Corpuscular Volume 93.1 fl (82-101); Mean Platelet Volume 10.1 fL (7.4-10.4); Monocytes # 1.1 10^3/uL (0.2-0.9); Monocytes % 9.4 %; Neutrophils # 6.62 10^3/uL (1.8-7.7); Neutrophils % 57.3 %; Nucleated Red Blood Cells % 0 %; Platelet Count 501 10^3/cmm (157-399); Red Blood Count 4.23 10^6/uL (3.85-5.65); Red Cell Distribution Width 14.2 % (12.1-15.1); White Blood Count 11.56 10^3/uL (3.29-11.43)
[2024-02-29 06:00] LABS: Anion Gap 13.5 (5-19); Blood Urea Nitrogen 14 mg/dL (6-20); C Reactive Protein 68.4 mg/L (0.0-4.9); Calcium 7.7 mg/dL (8.5-10.5); Carbon Dioxide 28 mmol/L (22-29); Chloride 104 mmol/L (98-107); Glomerular Filtration Rate 116.7 mL/min (90-130); Glucose 155 mg/dL (65-115); Magnesium 2.2 mg/dL (1.7-2.3); Osmolality Calculated 296 mOsm/kg (285-295); Phosphorus 3.6 mg/dL (2.5-4.5); Potassium 4.5 mmol/L (3.5-5.1); Sodium 141 mmol/L (136-145)
[2024-02-29] MEDS: ketorolac 30 mg/mL INJ 15 MG IVP ×3 (06:26→18:06)
[2024-02-29] MEDS: pantoprazole 40 mg SDV IVP (06:26)
--- NOTE | 2024-02-29 06:38 | PC.NURSE ---
Pt left w/surgery team for I&D.
--- NOTE | 2024-02-29 07:01 | P.ANESUD_ITS ---
Pre-Anesthetic Update Pre-Anesthetic Assessment: Date of Surgery/Procedure: 02/29/24 Preop Madelyn gnosis: Groin Abscess Proposed Procedure: Operation Date: 02/26/24 20:15 Proposed Procedures p Debridement(Not Applicable) - Juan Dumont MD Operation Date: 02/28/24 08:50 Proposed Procedures p Incision And Drainage, Washout, poss wound vac placement lower Extremity(Left) - Juan Dumont MD Operation Date: 02/29/24 08:10 Proposed Procedures p Incision And Drainage(Left) - Juan Dumont MD Changes from Pre-Anesthetic Assessment: No changes since yesterday NPO since 6 PM last night labs reviewed today, WBC 11.5, hemoglobin 11.7 DL performed yesterday without issues, plan for GETA Last Intake: Intake Last Liquid Date 02/28/24 Last Liquid Time 23:59 Last Solid Date 02/28/24 Last Solid Time 17:30 Labs Last 48hrs: Short CBC 02/28/24 02/29/24 Range/Units 05:17 05:02 WBC 11.87 H 11.56 H (3.29-11.43) 10^ 3/uL Hgb 12.40 11.70 (11.27-16.99) g/ dL Hct 40.4 39.4 (37-53) % MCV 89.8 93.1 (82-101) fl Plt Count 546 H 501 H (157-399) 10^3/c mm Neut % (Auto) 63.4 57.3 % Neut # (Auto) 7.53 6.62 (1.8-7.7) 10^3/u L BMP 02/28/24 02/29/24 05:17 05:02 Sodium 140 141 Potassium 4.1 4.5 Chloride 101 104 Carbon Dioxide 29 28 BUN 16 14 Creatinine 0.8 0.7 Glucose 154 H 155 H Calcium 7.7 L 7.7 L Coags 02/28/24 02/29/24 05:17 05:02 C-Reactive Protein 128.4 H 68.4 H Vitals: Temperature 97.5 F L 02/29/24 04:00 Temperature Source Oral 02/29/24 04:00 Pulse Rate 81 02/29/24 04:00 Pulse Rhythm Regular 02/28/24 10:00 Pulse Strength 3+ Normal 02/28/24 10:00 Respiratory Rate 16 02/29/24 04:00 Respiratory Effort Spontaneous, Non- Labored 02/28/24 23:42 Respiratory Depth Normal 02/28/24 23:42 Respiratory Patter n Normal 02/28/24 23:42 Blood Pressure 114/74 02/29/24 04:00 Blood Pressure Erika n 87 02/29/24 04:00 Blood Pressure Pos ition Semi Fowlers 02/27/24 04:00 Pulse Oximetry 97 02/29/24 04:00 Oxygen Delivery Me thod Room Air 02/29/24 04:00 Oxygen Flow Rate 6 02/28/24 10:07 Sepsis Recent Feve r Within 48 Hours No 02/26/24 14:30 Cardiac Studies: No Data to Display
--- NOTE | 2024-02-29 07:08 | SUR.PREOP ---
0640 Pt does not want vital signs taken this am. States has had his vital signs taken thousands of times over the past few days.
--- NOTE | 2024-02-29 08:15 | PM.OP ---
Operative Report Date of procedure: February 29, 2024 Pre-op diagnosis: Left thigh abscess Post-op diagnosis: NSTI of the left lower extremity Post-op findings: Minimal residual purulence at the base on top of the adductor muscle. Remaining tissue appears to be healthy. Procedure done: Washout debridement and wound VAC placement on left lower extremity wound Surgeon: Juan Dumont MD Guinea Pig Breeder: ELDA OR STaff Estimated blood loss: 5 Complications: none Brief History: 58-year-old male with necrotizing soft tissue infection of the left lower extremity, he has undergone subsequent debridements and is being taken back today for additional washout debridement and possible wound VAC placement. Procedure: Patient was brought into the OR, he was placed in a supine position. General anesthesia was given. Left thigh dressing was removed, minimal residual purulence at the bottom was noted. The left groin was prepped and draped in usual sterile fashion. A timeout was conducted. I then proceeded to explore the wound there was very minimal residual purulence coming from the upper part of the wound that tracks into the left groin, with the help of a ring forceps I was able to grasp the devitalized fascia at that level and excised, after release no evidence of further purulence or devitalized tissue was noted. The wound was profusely irrigated with saline using about 2 I then proceeded to pull the wound back,L. The pieces of black foam were used to fill the cavity and then the wound VAC dressing was placed in sterile fashion. Seal was achieved. The plan is to return to the OR in 48 to 72 hours for a wound VAC change, after that he will be able to transition to an outpatient wound VAC.
--- NOTE | 2024-02-29 08:42 | PC.NURSE ---
Called wound vac into [facility]. Confirmation number given was hospital per Miko at [facility]. Notified storeroom and central services tech of placement.
--- NOTE | 2024-02-29 08:46 | ANE.PACU2 ---
Inpatient post-anesthesia follow up: Airway intact: Yes Vital signs: Temperature 97.9 F Pulse Rate 90 Respiratory Rate 20 Blood Pressure 132/71 Pulse Oximetry 98 Oxygen Delivery Me thod Room Air Oxygen Flow Rate 6 Fraction of Inspir ed Oxygen Hydration adequate: Yes Nausea and vomiting: No Pain level: 1 Mental status: Baseline
[2024-02-29] MEDS: HYDROmorphone 1 mg/mL INJ 1 mL 0.4 MG IVP (09:08)
[2024-02-29] MEDS: insulin lispro 100 unit/1 mL SUBCUT ×2 (12:15→20:49)
[2024-02-29 12:19] LABS: Glucose Point of Care 214 mg/dL (70-110)
--- NOTE | 2024-02-29 13:38 | P.CONIM_ITS ---
Providers/Reason For Consult 2 Consulting Physician/Specialty*: Hospitalist service Reason for Consult*: Diabetes management Attending Physician: Juan Dumont MD History of Present Illness History of Present Illness Wero Hurd is a 58 year old male status post washout debridement and wound VAC placement of left lower extremity wound hospital service was consulted for hyperglycemia management. 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 In the hospital him his hemoglobin A1c was checked which came down from 6.9 with couple episodes of hyperglycemia, general surgery consulted medical service for hyperglycemia management. Review of Systems 2 Const: Denies: fever(s) Eyes: Denies: change in vision ENMT: Denies: throat pain Card: Denies: chest pain Medications/Allergies Home Medications Medication Instructions Recorded Confirmed Last Taken Type No Known Home Medications 02/26/24 02/27/24 Unknown History Allergies Allergy/AdvReac Type Severity Reaction Status Date / Time No Known Allergies Allergy Verified 02/26/24 13:38 Current Medications Generic Name Dose Route Start Last Admin Trade Name Freq PRN Reason Stop Dose Admin Hydromorphone HCl 0.4 mg 02/26/24 23:51 02/27/24 18:51 Hydromorphone 1 Mg/Ml Inj 1 Ml IVP 0.4 mg Q4H PRN Administration BREAKTHROUGH PAIN Lactated Ringer's 1,000 mls @ 100 mls/hr 02/26/24 23:51 02/28/24 05:41 Lactated Ringers IV 100 mls/hr .Q10H HERI Infusion Piperacillin Sod/Tazobactam 50 mls @ 12.5 mls/hr 02/27/24 01:00 02/28/24 05:41 Sod 4.5 gm/ Sodium Chloride IV Infused Q8H HERI Infusion Protocol Vancomycin HCl 2,000 mg in 400 mls @ 200 mls/hr 02/27/24 08:00 02/28/24 08:59 Vancocin IV 200 mls/hr Q12H HERI Administration Ketorolac Tromethamine 15 mg 02/27/24 00:30 02/28/24 05:49 Ketorolac 30 Mg/Ml Inj IVP 03/03/24 00:29 15 mg Q6H HERI Administration Pantoprazole Sodium 40 mg 02/27/24 06:00 02/28/24 05:48 Pantoprazole 40 Mg Sdv IVP 40 mg Q24H HERI Administration Zolpidem Tartrate 5 mg 02/27/24 23:16 02/27/24 23:33 Zolpidem 5 Mg Tablet PO 5 mg BEDTIME PRN Administration INSOMNIA PFSH Acute 2 PFSH: Social History Smoking and tobacco/nicotine status: never used tobacco/nicotine Vitals/I&O/Wt Last Vital Signs Temp 98.5 F 02/28/24 07:45 Pulse 82 02/28/24 07:45 Resp 20 H 02/28/24 07:45 BP 128/88 02/28/24 07:45 Pulse Ox 98 02/28/24 07:45 O2 Del Method Room Air 02/28/24 07:45 O2 Flow Rate 2 02/27/24 00:15 02/27/24 02/28/24 02/28/24 22:59 06:59 14:59 Intake Total 580 / 2566.667 625 / 3191.667 Balance 580 / 1641.667 625 / 2266.667 Weight last 48 hrs Weight 129.002 kg Weight 133.538 kg Weight 137.438 kg Weight 163.293 kg Physical Exam 2 Narrative: Morbidly obese GCS [address] left groin area No active signs of worsening of cellulitis Awake and alert Sitting at the bedside S1, S2 Normotensive Currently on room air Afebrile is at the bedside Data 02/29/24 05:02 02/29/24 05:02 Micro: Microbiology 02/26/24 19:35 Blood Culture - Preliminary Blood NEGATIVE TO DATE 02/26/24 19:38 Blood Culture - Preliminary Blood NEGATIVE TO DATE 02/26/24 22:20 Gram Stain - Final Leg - Left A&P Assessment and plan (1) Diabetes: (2) Morbid obesity: (3) Inguinal abscess: (4) Soft tissue infection: Plan I spent 40 to 50 minutes today in counseling of diabetes with the patient, I had to tell him what diabetes is and when to be diagnosed, he was under the impression that he is wrongly diagnosed with this. His hemoglobin A1c is 6.9 with his blood sugar elevated above 150 on multiple occasions, it took him about 15 to 20 minutes to realize that at this point his diabetes is not to the point where he would need insulin but if he does take care of his lifestyle modification and weight reduction he might be able to reverse it with appropriate modification and disciplined lifestyle. For now he is agreeable to get Accu-Cheks as per the sliding scale get insulin and at the time of discharge she is agreeable to use metformin. I am planning to send metformin to [facility]. I have counseled patient on potential complications of diabetes including microangiopathy causing retinopathy, angiopathy and renal disease. At this point he is very receptive and agreeable for our recommendations. Consult Attestations 2 Medical Necessity Statement: Continue medical management Diagnoses Diabetes E11.9 Morbid obesity E66.01 Inguinal abscess L02.214 Soft tissue infection L08.9
[2024-02-29] MEDS: enoxaparin 40 mg/0.4 mL Syringe SUBCUT (14:30)
[2024-02-29 16:22] LABS: Glucose Point of Care 136 mg/dL (70-110)
[2024-02-29 20:23] LABS: Glucose Point of Care 156 mg/dL (70-110)
[2024-02-29] MEDS: vancomycin 2,000 MG/400 ML PIGGYBACK 200 MG IV (20:49)
[2024-02-29] MEDS: zolpidem 5 mg Tablet PO (20:56)
[2024-03-01] VITALS (7 sets, daily range): BP systolic 116–145; BP diastolic 64–91; PULSE 79–85; RESP 17–19; TEMP 36.4–37; O2SAT 93–97
[2024-03-01] MEDS: ketorolac 30 mg/mL INJ 15 MG IVP ×4 (00:06→18:13)
[2024-03-01] MEDS: lactated ringers 1,000 ML 100 ML IV ×3 (00:09→20:31)
[2024-03-01] MEDS: meropenem 1,000 mg SDV 1000 MG IVP ×3 (03:00→20:29)
[2024-03-01] MEDS: pantoprazole 40 mg SDV IVP (06:20)
[2024-03-01 06:27] LABS: Glucose Point of Care 145 mg/dL (70-110)
[2024-03-01 07:51] LABS: Basophils # 0.1 10^3/uL (0.0-0.1); Basophils % 0.9 %; Eosinophils # 0.4 10^3/uL (0.0-0.8); Eosinophils % 3.5 %; Lymphocytes % 29.9 %; Mean Corpuscular HGB Conc 30.3 g/dL (30-55); Mean Corpuscular Hemoglobin 28.2 pg (27-33); Mean Corpuscular Volume 93.1 fl (82-101); Mean Platelet Volume 9.7 fL (7.4-10.4); Monocytes # 0.8 10^3/uL (0.2-0.9); Monocytes % 7.6 %; Neutrophils % 52.8 %; Nucleated Red Blood Cells % 0 %; Platelet Count 510 10^3/cmm (157-399); Red Blood Count 4.08 10^6/uL (3.85-5.65); Red Cell Distribution Width 14.4 % (12.1-15.1); White Blood Count 9.86 10^3/uL (3.29-11.43)
[2024-03-01 08:06] LABS: Anion Gap 10.6 (5-19); Blood Urea Nitrogen 13 mg/dL (6-20); C Reactive Protein 27.3 mg/L (0.0-4.9); Calcium 7.7 mg/dL (8.5-10.5); Carbon Dioxide 27 mmol/L (22-29); Chloride 110 mmol/L (98-107); Creatinine Clr Calc Pharmacy 162.8733; Glomerular Filtration Rate 116.7 mL/min (90-130); Glucose 138 mg/dL (65-115); Osmolality Calculated 298 mOsm/kg (285-295); Potassium 4.6 mmol/L (3.5-5.1); Sodium 143 mmol/L (136-145)
[2024-03-01 08:23] LABS: Slide Review Slide Review Perform
[2024-03-01] MEDS: insulin lispro 100 unit/1 mL SUBCUT ×2 (09:14→20:30)
[2024-03-01] MEDS: vancomycin 2,000 MG/400 ML PIGGYBACK 200 MG IV ×2 (09:15→20:30)
--- NOTE | 2024-03-01 10:52 | P.PN_ITS ---
Subjective 2 Subjective: 58-year-old male with NSTI of the left l ower extremity, patient has had a debridement and subsequent washout. Yesterday a wound VAC was placed. He is doing very well, white count went back to normal, vital signs have been stable. Denies any pain is feeling better today. Vitals/I&O/Wt Last Vital Signs Temp 97.9 F 03/01/24 07:41 Pulse 80 03/01/24 07:41 Resp 18 03/01/24 07:41 BP 120/77 03/01/24 07:41 Pulse Ox 96 03/01/24 07:41 O2 Del Method Room Air 03/01/24 07:41 O2 Flow Rate 6 02/29/24 08:26 02/29/24 03/01/24 03/01/24 22:59 06:59 14:59 Intake Total 1840 / 3370 760 / 4130 480 / 480 Output Total 800 / 1252 600 / 1852 300 / 300 Balance 1040 / 2118 160 / 2278 180 / 180 Weight last 48 hrs Weight 289 lb 9.6 oz Weight 289 lb 11.2 oz Physical Exam 2 Extremity: NARRATIVE EXTREMITY EXAM: Left lower extremity wound VAC in place output has been serosanguineous. Data 03/01/24 07:21 03/01/24 07:21 Micro: Microbiology 02/26/24 22:20 Gram Stain - Final Leg - Left Anaerobic Culture - Preliminary Abscess Culture - Preliminary 02/28/24 09:44 Gram Stain - Final Thigh - Left Tissue Culture - Preliminary A&P Assessment and plan (1) Diabetes: (2) Soft tissue infection: (3) Inguinal abscess: Plan 58-year-old male with NSTI of the left lower extremity in the setting of newly diagnosed diabetes, patient is showing very good progression CRP has consistently trended down it was more than 200 when he presented now is 27.3, white count has normalized. Cultures are still pending. Medical team is helping us with the medical management of diabetes. Next wound VAC change will be on Friday, plan is to have case management talk to the patient to see we can get him a portable wound VAC to go home. Unfortunately patient is under insurance so we are going to try to attempt to find the best way for him to transition to the outpatient setting. Attestations 2 Medical Necessity Statement*: Patient will require 48 to 72 hours more of hospital stay for management of NSTI of left lower extremity Coding Level of Care Code Acute Code for [facility] Diagnoses Diabetes E11.9 Soft tissue infection L08.9 Inguinal abscess L02.214
[2024-03-01 12:27] LABS: Glucose Point of Care 109 mg/dL (70-110)
[2024-03-01] MEDS: enoxaparin 40 mg/0.4 mL Syringe SUBCUT (14:00)
--- NOTE | 2024-03-01 15:43 | PM.MISC ---
Miscellaneous Note Purpose of Documentation: Wound measurement Note: Left lower extremity wound measures 10 cm x 3 cm by 10 cm, with a superior undermining of 7 cm. Wound is packed with black sponge Wound VAC setting is continuos vacuum with a pressure of 125 mmHg. Wound VAC change will be required every third day
[2024-03-01 16:57] LABS: Glucose Point of Care 118 mg/dL (70-110)
[2024-03-01 20:19] LABS: Glucose Point of Care 156 mg/dL (70-110)
[2024-03-02] MEDS: ketorolac 30 mg/mL INJ 15 MG IVP ×2 (00:01→06:01)
[2024-03-02] MEDS: zolpidem 5 mg Tablet PO ×2 (00:01→21:22)
[2024-03-02] MEDS: meropenem 1,000 mg SDV 1000 MG IVP ×3 (03:44→21:24)
[2024-03-02 04:00] VITALS: BP 132/81; PULSE 78; RESP 17; TEMP 37; O2SAT 96
[2024-03-02] MEDS: pantoprazole 40 mg SDV IVP (06:01)
[2024-03-02 06:19] LABS: Glucose Point of Care 126 mg/dL (70-110)
[2024-03-02 07:29] LABS: Basophils # 0.1 10^3/uL (0.0-0.1); Basophils % 0.6 %; Eosinophils # 0.4 10^3/uL (0.0-0.8); Eosinophils % 3.5 %; Hematocrit 38.5 % (37-53); Lymphocytes # 2.6 10^3/uL (0.8-4.8); Lymphocytes % 21.3 %; Mean Corpuscular HGB Conc 30.1 g/dL (30-55); Mean Corpuscular Hemoglobin 27.5 pg (27-33); Mean Corpuscular Volume 91.2 fl (82-101); Mean Platelet Volume 9.8 fL (7.4-10.4); Monocytes # 0.7 10^3/uL (0.2-0.9); Monocytes % 5.6 %; Neutrophils # 8.11 10^3/uL (1.8-7.7); Neutrophils % 65.9 %; Nucleated Red Blood Cells % 0 %; Platelet Count 426 10^3/cmm (157-399); Red Blood Count 4.22 10^6/uL (3.85-5.65); Red Cell Distribution Width 14.2 % (12.1-15.1); White Blood Count 12.32 10^3/uL (3.29-11.43)
[2024-03-02 07:31] VITALS: BP 115/83; PULSE 74; RESP 17; TEMP 36.7; O2SAT 97
[2024-03-02 07:49] LABS: Anion Gap 11.8 (5-19); Blood Urea Nitrogen 14 mg/dL (6-20); C Reactive Protein 16.8 mg/L (0.0-4.9); Calcium 7.9 mg/dL (8.5-10.5); Carbon Dioxide 28 mmol/L (22-29); Chloride 105 mmol/L (98-107); Glomerular Filtration Rate 116.7 mL/min (90-130); Glucose 132 mg/dL (65-115); Osmolality Calculated 292 mOsm/kg (285-295); Potassium 4.8 mmol/L (3.5-5.1); Sodium 140 mmol/L (136-145)
[2024-03-02 07:51] LABS: Vancomycin Trough 16.4 ug/mL (10-15)
[2024-03-02] MEDS: vancomycin 2,000 MG/400 ML PIGGYBACK 200 MG IV ×2 (09:20→21:25)
--- NOTE | 2024-03-02 11:04 | P.PN_ITS ---
Subjective 2 Subjective: 58-year-old male with NSTI of the left g roin, doing well overnight, no pain or any other symptom. vitals stable Vitals/I&O/Wt Last Vital Signs Temp 98.1 F 03/02/24 07:31 Pulse 74 03/02/24 07:31 Resp 17 03/02/24 07:31 BP 115/83 03/02/24 07:31 Pulse Ox 97 03/02/24 07:31 O2 Del Method Room Air 03/02/24 07:31 O2 Flow Rate 6 02/29/24 08:26 03/01/24 03/02/24 03/02/24 22:59 06:59 14:59 Intake Total 2673.333 / 4513.333 360 / 4873.333 970 / 970 Output Total 600 / 900 1380 / 2280 Balance 2073.333 / 3613.333 -1020 / 2593.333 970 / 970 Weight last 48 hrs Weight 290 lb 8 oz Weight 289 lb 9.6 oz Physical Exam 2 Extremity: NARRATIVE EXTREMITY EXAM: wound vac in place with good seal, improved edema and erythema around the tissue effluent from wound is sero-sanguinous. Data 03/02/24 07:18 03/02/24 07:18 Micro: Microbiology 02/28/24 09:44 Gram Stain - Final Thigh - Left Tissue Culture - Preliminary 02/26/24 22:20 Gram Stain - Final Leg - Left Anaerobic Culture - Preliminary Abscess Culture - Final A&P Assessment and plan (1) Morbid obesity: (2) Diabetes: (3) Inguinal abscess: Plan Good progression of the last 24 hours, cultures are growing gram-positive cocci in pairs. Vitals have been stable CRP continues to trend down but he had a slight uptrend of the white count today. I plan to take him back to the OR tomorrow to do the first wound VAC change, if at the time I see any evidence of purulence higher in the groin I will perform another debridement with another incision more proximal to the 1 that he has now. Patient was informed of the plan and he agrees with proceeding. Will continue current management until then. Attestations 2 Medical Necessity Statement*: 24-48 hours for continuation of managem ent of NSTI Coding Level of Care Code Acute Code for [facility] Fwd Diagnoses Morbid obesity E66.01 Diabetes E11.9 Inguinal abscess L02.214
[2024-03-02 11:06] LABS: Glucose Point of Care 134 mg/dL (70-110)
[2024-03-02 11:19] VITALS: BP 114/73; PULSE 77; RESP 16; TEMP 36.4; O2SAT 95
[2024-03-02] MEDS: enoxaparin 40 mg/0.4 mL Syringe SUBCUT (14:31)
[2024-03-02 16:00] VITALS: BP 128/69; PULSE 84; RESP 16; TEMP 36.8; O2SAT 97
[2024-03-02 16:36] LABS: Glucose Point of Care 117 mg/dL (70-110)
[2024-03-02 20:00] VITALS: BP 116/77; PULSE 90; RESP 16; TEMP 36.7; O2SAT 95
[2024-03-02 21:24] LABS: Glucose Point of Care 116 mg/dL (70-110)
[2024-03-03] VITALS (16 sets, daily range): BP systolic 98–163; BP diastolic 62–129; PULSE 68–87; RESP 11–20; TEMP 36.3–36.8; O2SAT 91–98
[2024-03-03] MEDS: pantoprazole 40 mg SDV IVP (05:06)
[2024-03-03] MEDS: meropenem 1,000 mg SDV 1000 MG IVP ×2 (05:06→20:33)
[2024-03-03 05:33] LABS: Basophils # 0.1 10^3/uL (0.0-0.1); Basophils % 0.6 %; Eosinophils # 0.4 10^3/uL (0.0-0.8); Hematocrit 38.9 % (37-53); Lymphocytes # 2.6 10^3/uL (0.8-4.8); Lymphocytes % 20.5 %; Mean Corpuscular HGB Conc 30.3 g/dL (30-55); Mean Corpuscular Hemoglobin 27.6 pg (27-33); Mean Corpuscular Volume 91.1 fl (82-101); Mean Platelet Volume 10.2 fL (7.4-10.4); Monocytes # 0.8 10^3/uL (0.2-0.9); Monocytes % 6.3 %; Neutrophils # 8.51 10^3/uL (1.8-7.7); Neutrophils % 66.9 %; Nucleated Red Blood Cells % 0 %; Platelet Count 440 10^3/cmm (157-399); Red Blood Count 4.27 10^6/uL (3.85-5.65); White Blood Count 12.72 10^3/uL (3.29-11.43)
[2024-03-03 05:49] LABS: Anion Gap 12.1 (5-19); Blood Urea Nitrogen 15 mg/dL (6-20); Calcium 8.1 mg/dL (8.5-10.5); Carbon Dioxide 29 mmol/L (22-29); Chloride 106 mmol/L (98-107); Glucose 138 mg/dL (65-115); Osmolality Calculated 297 mOsm/kg (285-295); Potassium 5.1 mmol/L (3.5-5.1); Sodium 142 mmol/L (136-145)
[2024-03-03 05:57] LABS: C Reactive Protein 11.7 mg/L (0.0-4.9)
[2024-03-03 06:06] LABS: Glucose Point of Care 124 mg/dL (70-110)
[2024-03-03] MEDS: vancomycin 2,000 MG/400 ML PIGGYBACK 200 MG IV ×2 (07:34→20:32)
--- NOTE | 2024-03-03 08:00 | PM.PN ---
Subjective Subjective: 58-year-old male with necrotizing soft tissue infection of the left lower extremity in the setting of newly diagnosed diabetes and obesity. Patient is clinically doing well but he is waking has been elevated for the last 48 hours around 12.7, no fever no physical exam findings concerning for infection, otherwise doing okay Vitals/I&O/Wt Last Vital Signs Temp 97.7 F 03/03/24 07:28 Pulse 75 03/03/24 07:28 Resp 16 03/03/24 07:28 BP 135/77 03/03/24 07:28 Pulse Ox 96 03/03/24 07:28 O2 Del Method Room Air 03/03/24 07:28 O2 Flow Rate 6 02/29/24 08:26 03/02/24 03/03/24 03/03/24 22:59 06:59 14:59 Intake Total 243.333 / 2093.333 396.667 / 2490.000 Output Total 240 / 240 2150 / 2390 Balance 3.333 / 1853.333 -1753.333 / 100.000 Weight last 48 hrs Weight 279 lb 11.2 oz Weight 290 lb 8 oz Physical Exam Extremity: NARRATIVE EXTREMITY EXAM: Left lower extremity wound VAC in place, effluent serosanguineous. Good seal. Less edema around the skin. Data 03/03/24 05:00 03/03/24 05:00 Micro: Microbiology 02/26/24 19:38 Blood Culture - Final Blood NO GROWTH AFTER 5 DAYS 02/26/24 22:20 Gram Stain - Final Leg - Left Anaerobic Culture - Preliminary Abscess Culture - Final 02/28/24 09:44 Gram Stain - Final Thigh - Left Tissue Culture - Preliminary A&P Assessment and plan (1) Morbid obesity: (2) Diabetes: (3) Inguinal abscess: (4) Soft tissue infection: Plan Patient showing good progression after necrotizing soft tissue infection of the left lower extremity. Vital signs have been stable , Has not had fever since day of admission. White count is 12.7 today which is stable from yesterday. The CRP continues to trend down was in the 20s yesterday today is 11. Plan is to return to the OR today for wound VAC change and washout if I see any additional purulence proximal I will make another incision at the level of the groin to allow for better drainage. I discussed with the patient all risk and benefits of the operation including the risks of needing additional debridement, injury to surrounding tissue, persistent infection, damage to the adjacent structures including the great vessels of the leg as well as the neurovascular bundle. Patient shows understanding and is agreeable to proceed. Attestations Medical Necessity Statement*: Patient will require 48 to 72 hours of hospital stay for continuous management of necrotizing soft tissue infection of the left lower extremity. Coding Level of Care Code Acute Code for [facility] Fwd Diagnoses Morbid obesity E66.01 Diabetes E11.9 Inguinal abscess L02.214 Soft tissue infection L08.9
[2024-03-03 10:59] LABS: Glucose Point of Care 108 mg/dL (70-110)
--- NOTE | 2024-03-03 12:00 | P.ANESUD_ITS ---
Pre-Anesthetic Update Pre-Anesthetic Assessment: Date of Surgery/Procedure: 03/03/24 Preop Madelyn gnosis: Groin Abscess Proposed Procedure: Operation Date: 02/26/24 20:15 Proposed Procedures p Debridement(Not Applicable) - Juan Dumont MD Operation Date: 02/28/24 08:50 Proposed Procedures p Incision And Drainage, Washout, poss wound vac placement lower Extremity(Left) - Juan Dumont MD Operation Date: 02/29/24 08:10 Proposed Procedures p Incision And Drainage(Left) - Juan Dumont MD Operation Date: 03/03/24 12:00 Proposed Procedures p Washout and Wound Vac Change left lower extremity(Left) - Juan Dumont MD Changes from Pre-Anesthetic Assessment: No changes since prior anesthetic, same plan today Last Intake: Intake Last Liquid Date 02/28/24 Last Liquid Time 23:59 Last Solid Date 02/28/24 Last Solid Time 17:30 Labs Last 48hrs: Short CBC 03/02/24 03/03/24 Range/Units 07:18 05:00 WBC 12.32 H 12.72 H (3.29-11.43) 10^ 3/uL Hgb 11.60 11.80 (11.27-16.99) g/ dL Hct 38.5 38.9 (37-53) % MCV 91.2 91.1 (82-101) fl Plt Count 426 H 440 H (157-399) 10^3/c mm Neut % (Auto) 65.9 66.9 % Neut # (Auto) 8.11 H 8.51 H (1.8-7.7) 10^3/u L BMP 03/02/24 03/03/24 07:18 05:00 Sodium 140 142 Potassium 4.8 5.1 Chloride 105 106 Carbon Dioxide 28 29 BUN 14 15 Creatinine 0.7 0.8 Glucose 132 H 138 H Calcium 7.9 L 8.1 L Coags 03/02/24 03/03/24 07:18 05:00 C-Reactive Protein 16.8 H 11.7 H Vitals: Temperature 98.2 F 03/03/24 13:54 Temperature Source Temporal Artery S can 03/03/24 13:54 Pulse Rate 74 03/03/24 13:54 Pulse Rhythm Regular 03/01/24 08:00 Pulse Strength 3+ Normal 03/01/24 08:00 Respiratory Rate 15 03/03/24 13:54 Respiratory Effort Spontaneous, Non- Labored 03/02/24 08:00 Respiratory Depth Normal 03/02/24 08:00 Respiratory Patter n Normal 03/02/24 08:00 Blood Pressure 120/95 03/03/24 13:54 Blood Pressure Erika n 103 03/03/24 13:54 Blood Pressure Pos ition Semi Fowlers 03/02/24 04:00 Pulse Oximetry 97 03/03/24 13:54 Oxygen Delivery Me thod Nasal Cannula 03/03/24 13:54 Oxygen Flow Rate 3 03/03/24 13:54 Sepsis Recent Feve r Within 48 Hours No 02/26/24 14:30 Cardiac Studies: No Data to Display
[2024-03-03] MEDS: lidocaine-epi 1% 20 mL INJ INJECTION (13:06)
[2024-03-03] MEDS: BUPivacaine 0.25% INJ 10 mL INJECTION (13:06)
--- NOTE | 2024-03-03 13:38 | PM.OP ---
Operative Report Date of procedure: March 03, 2024 Pre-op diagnosis: NSTI of ;the left lower extremity Post-op diagnosis: same Post-op findings: excellent progression, no purulence or devitalized tissue noted. Procedure done: washout and wound vac placement of left lower extremity wound. Specimens removed/disposition: none Surgeon: Juan Dumont MD Parimutuel Ticket Seller: ELDA OR [facility] Estimated blood loss: 5 Complications: none Brief History: This a 58-year-old male with necrotizing soft tissue infection of the left lower extremity, has underwent multiple debridements and washouts, returning today to the OR for a washout and wound VAC change and possible additional debridement as his white count was noted to trend up. Procedure: Patient was brought into the OR, he was placed in a supine position. General anesthesia was given. The the inner sponge from the wound VAC was removed from the wound, no residual purulence was noted. Left lower extremity was prepped and draped in usual sterile fashion. Timeout was conducted. I then proceeded to explore the wound, excellent amount of granulation tissue was noted but at the deep portion of the wound as well as the superficial, the cephalad portion of the wound that tracked into the groin appeared healthy, no purulence was noted, no devitalized tissue was seen. I proceeded to irrigate the wound with 2 L of saline, no evidence of residual purulence was noted. I then replaced the wound VAC dressing in in a standard fashion using only black sponge for the wound. Overall excellent progression for soft tissue infection of the left lower extremity. At the end of the procedure patient was transferred to the PACU in stable condition and all counts were correct.
--- NOTE | 2024-03-03 13:46 | PM.MISC ---
Miscellaneous Note Purpose of Documentation: Update on patient care Note: After a respiration today, there is no evidence of any residual purulence, the wound appears healthy. I replaced the wound VAC. We will obtain another CBC tomorrow but if they white count does not show a significant change I will probably stop checking as slightly the mild elevation in the white count is more inflammatory in nature rather than infectious at this point. We are attempting to obtain a wound VAC for the patient, since he is uninsured this has proven to be very difficult, in the case that we are unable to obtain a wound VAC, we will plan to discharge the patient home on wet-to-dry dressing changes.
--- NOTE | 2024-03-03 13:56 | ANE.PACU2 ---
Inpatient post-anesthesia follow up: Airway intact: Yes Vital signs: Temperature 98.2 F Pulse Rate 74 Respiratory Rate 15 Blood Pressure 120/95 Pulse Oximetry 97 Oxygen Delivery Me thod Nasal Cannula Oxygen Flow Rate 3 Fraction of Inspir ed Oxygen Hydration adequate: Yes Nausea and vomiting: No Pain level: 1 Mental status: Baseline
[2024-03-03 16:53] LABS: Glucose Point of Care 211 mg/dL (70-110)
[2024-03-03] MEDS: insulin lispro 100 unit/1 mL SUBCUT (17:12)
[2024-03-03] MEDS: sodium chloride 0.9% 1,000 ML 30 ML IV (19:34)
[2024-03-03 20:53] LABS: Glucose Point of Care 139 mg/dL (70-110)
[2024-03-03] MEDS: zolpidem 5 mg Tablet PO (20:54)
[2024-03-04] VITALS: BP 131/76; PULSE 80; RESP 18; TEMP 36.5; O2SAT 93
[2024-03-04 04:00] VITALS: BP 127/87; PULSE 83; RESP 18; TEMP 36.8; O2SAT 94
[2024-03-04] MEDS: meropenem 1,000 mg SDV 1000 MG IVP ×3 (05:11→21:19)
[2024-03-04] MEDS: pantoprazole 40 mg SDV IVP (05:11)
[2024-03-04 05:34] LABS: Basophils # 0.1 10^3/uL (0.0-0.1); Basophils % 0.5 %; Eosinophils # 0.2 10^3/uL (0.0-0.8); Eosinophils % 1.7 %; Hematocrit 39.5 % (37-53); Lymphocytes # 2.5 10^3/uL (0.8-4.8); Lymphocytes % 20.9 %; Mean Corpuscular HGB Conc 30.6 g/dL (30-55); Mean Corpuscular Hemoglobin 28.2 pg (27-33); Mean Corpuscular Volume 92.1 fl (82-101); Mean Platelet Volume 9.8 fL (7.4-10.4); Monocytes # 0.8 10^3/uL (0.2-0.9); Monocytes % 6.4 %; Neutrophils % 68.8 %; Nucleated Red Blood Cells % 0 %; Platelet Count 421 10^3/cmm (157-399); Red Blood Count 4.29 10^6/uL (3.85-5.65); Red Cell Distribution Width 13.9 % (12.1-15.1); White Blood Count 12.06 10^3/uL (3.29-11.43)
[2024-03-04 05:59] LABS: Blood Urea Nitrogen 16 mg/dL (6-20); C Reactive Protein 8.7 mg/L (0.0-4.9); Calcium 8.2 mg/dL (8.5-10.5); Carbon Dioxide 26 mmol/L (22-29); Chloride 104 mmol/L (98-107); Creatinine Clr Calc Pharmacy 145.4781; Glucose 138 mg/dL (65-115); Osmolality Calculated 291 mOsm/kg (285-295); Sodium 139 mmol/L (136-145)
[2024-03-04 06:00] LABS: Anion Gap 13.6 (5-19); Potassium 4.6 mmol/L (3.5-5.1)
[2024-03-04 06:24] LABS: Glucose Point of Care 126 mg/dL (70-110)
[2024-03-04 07:57] LABS: Glucose Point of Care 133 mg/dL (70-110)
[2024-03-04 08:00] VITALS: BP 135/79; PULSE 97; RESP 15; TEMP 36.8; O2SAT 97
[2024-03-04] MEDS: vancomycin 2,000 MG/400 ML PIGGYBACK 200 MG IV (08:42)
--- NOTE | 2024-03-04 09:07 | P.PN_ITS ---
Subjective 2 Subjective: Patient showing excellent progression of the last 24 hours. Patient is doing well, no pain no issues, no fever. Is in good spirits. Vitals/I&O/Wt Last Vital Signs Temp 98.3 F 03/04/24 08:00 Pulse 97 03/04/24 08:00 Resp 15 03/04/24 08:00 BP 135/79 03/04/24 08:00 Pulse Ox 97 03/04/24 08:00 O2 Del Method Nasal Cannula 03/03/24 16:00 O2 Flow Rate 3 03/03/24 13:54 03/03/24 03/04/24 03/04/24 22:59 06:59 14:59 Intake Total 1520 / 1969 240 / 2210 Output Total 1000 / 1005 Balance 1520 / 1965 -760 / 1205 Weight last 48 hrs Weight 300 lb 12.8 oz Weight 279 lb 11.2 oz Physical Exam 2 Extremity: NARRATIVE EXTREMITY EXAM: Left lower extremity back in place, output is serosanguineous. Data 03/04/24 05:10 03/04/24 05:10 Micro: Microbiology 02/26/24 22:20 Gram Stain - Final Leg - Left Anaerobic Culture - Preliminary Abscess Culture - Final 02/28/24 09:44 Gram Stain - Final Thigh - Left Tissue Culture - Final Corynebacterium Species A&P Assessment and plan (1) Morbid obesity: (2) Diabetes: (3) Soft tissue infection: (4) Inguinal abscess: Plan Patient showing very good progression over the last 24 hours. His vitals have remained stable. White count has been stable over the last 3 days of 12. The CRP has continued to trend down today is 8.7. At this point we will stop checking daily labs. Plan is to discharge tomorrow home with p.o. antibiotics. We are waiting for authorization from [facility] regarding wound VAC in the case of not being able to obtain a wound VAC the plan will be to remove the wound VAC and proceed with wet-to-dry dressing changes. Patient shows understanding agrees with the plan. Attestations 2 Medical Necessity Statement*: Possible discharge tomorrow. Coding Level of Care Code Acute Code for [facility] Fwd Diagnoses Morbid obesity E66.01 Diabetes E11.9 Soft tissue infection L08.9 Inguinal abscess L02.214
[2024-03-04] MEDS: doxycycline 100 mg Tablet PO ×2 (10:53→21:19)
[2024-03-04 11:41] LABS: Glucose Point of Care 104 mg/dL (70-110)
[2024-03-04 11:55] VITALS: BP 158/94; PULSE 89; RESP 17; TEMP 36.3; O2SAT 96
[2024-03-04] MEDS: enoxaparin 40 mg/0.4 mL Syringe SUBCUT (13:24)
[2024-03-04 15:38] VITALS: BP 124/83; PULSE 68; RESP 17; TEMP 36.4; O2SAT 97
[2024-03-04 16:51] LABS: Glucose Point of Care 147 mg/dL (70-110)
[2024-03-04] MEDS: insulin lispro 100 unit/1 mL SUBCUT (17:33)
[2024-03-04 20:00] VITALS: BP 111/59; PULSE 81; RESP 19; TEMP 36.6; O2SAT 96
[2024-03-04] MEDS: zolpidem 5 mg Tablet PO (21:19)
[2024-03-04 21:32] LABS: Glucose Point of Care 104 mg/dL (70-110)
[2024-03-05] VITALS: BP 122/81; PULSE 80; RESP 18; TEMP 37.3; O2SAT 94
[2024-03-05 04:00] VITALS: BP 150/80; PULSE 84; RESP 14; TEMP 36.4; O2SAT 94
[2024-03-05] MEDS: meropenem 1,000 mg SDV 1000 MG IVP ×2 (05:07→11:01)
[2024-03-05] MEDS: pantoprazole 40 mg SDV IVP (05:07)
[2024-03-05 06:28] LABS: Glucose Point of Care 133 mg/dL (70-110)
[2024-03-05 08:00] VITALS: BP 127/68; PULSE 74; RESP 17; TEMP 36.7; O2SAT 94
[2024-03-05] MEDS: doxycycline 100 mg Tablet PO (08:50)
[2024-03-05 10:39] LABS: Glucose Point of Care 121 mg/dL (70-110)
[2024-03-05] MEDS: HYDROmorphone 1 mg/mL INJ 1 mL 0.5 MG IVP (10:49)
[2024-03-05] MEDS: lidocaine 2% viscous 15 mL UDC 10 ML TOPICAL (11:00)
--- NOTE | 2024-03-05 11:28 | PM.DCS ---
Discharge Providers Date of Admission: 02/26/24 20:33 Date of Discharge: March 05, 2024 Attending Provider at Admission: Juan Dumont MD Attending Provider at Discharge: Juan Dumont MD Diagnoses at Discharge Discharge Diagnosis (1) Morbid obesity: Status: Acute (2) Diabetes: Status: Acute (3) Soft tissue infection: Status: Acute (4) Inguinal abscess: Status: Acute Reason for Visit Reason for Visit: boil that rupture (referral urgent care) Hospital Course Hospital Course Is a 58-year-old male who presented to the hospital with a left lower extremity necrotizing soft tissue infection in the setting of a newly diagnosed diabetes. Patient underwent incision and drainage and debridement of the wound and return to the OR total of 4 times for washout debridement and eventually wound VAC placement and change. Patient has been doing very well his progression has been steady, his inflammatory markers have improved. Today wound VAC was taken down and replaced with wet-to-dry dressing as unfortunately patient was not eligible for portable wound VAC due to insurance. Wound appears to be healing well, very good granulation tissue at the base and no evidence of purulence. Patient will follow-up in the clinic in 2 weeks and will continue to follow-up with wound care. Physical Exam Extremity: OTHER: Left lower extremity wound with very good progression, local edema has completely resolved as well as erythema, wound has very healthy granulation tissue at the base and no purulence noted. Discharge Data Studies Completed and Pending Completed Studies During Hospitalization Category Date Time Status CT abdomen pelvis w con* [id number] Stat Cat Scan 02/26/24 17:49 Completed Pending at discharge Category Date Time Status Abscess Culture and Gram Stain Routine Lab 02/26/24 22:20 Results Aerobic Bacterium Id & Suscept Routine Lab 03/01/24 11:57 Received Anaerobic Culture Routine Lab 02/26/24 22:20 Results Blood Culture Stat Lab 02/26/24 19:38 Results Radiology Impressions Abdomen/Pelvis CT 02/26/24 17:49 IMPRESSION: 1. Left groin and thigh abscess. Please see CT thigh report below. 2. Fatty liver 3. No acute intra-abdominal finding. IMPRESSION: Findings worrisome for necrotizing fasciitis involving the left thigh. COMMENTS: 1. The left thigh which is included on this examination is grossly normal. 2. THIS REPORT CONTAINS FINDINGS THAT MAY BE CRITICAL TO PATIENT CARE. The findings were verbally communicated via telephone conference with ANGELINE MEDRANO at 9:13 PM CDT on 02/26/2024. The findings were acknowledged and understood. Laboratory Results WBC 12.06 10^3/uL (3.29-11.43) H 03/04/24 05:10 RBC 4.29 10^6/uL (3.85-5.65) 03/04/24 05:10 Hgb 12.10 g/dL (11.27-16.99) 03/04/24 05:10 Hct 39.5 % (37-53) 03/04/24 05:10 MCV 92.1 fl (82-101) 03/04/24 05:10 MCH 28.2 pg (27-33) 03/04/24 05:10 MCHC 30.6 g/dL (30-55) 03/04/24 05:10 RDW 13.9 % (12.1-15.1) 03/04/24 05:10 Plt Count 421 10^3/cmm (157-399) H 03/04/24 05:10 MPV 9.8 fL (7.4-10.4) 03/04/24 05:10 Neut % (Auto) 68.8 % 03/04/24 05:10 Lymph % (Auto) 20.9 % 03/04/24 05:10 [place] % (Auto) 6.4 % 03/04/24 05:10 Eos % (Auto) 1.7 % 03/04/24 05:10 Baso % (Auto) 0.5 % 03/04/24 05:10 Neut # (Auto) 8.30 10^3/uL (1.8-7.7) H 03/04/24 05:10 Lymph # (Auto) 2.5 10^3/uL (0.8-4.8) 03/04/24 05:10 [place] # (Auto) 0.8 10^3/uL (0.2-0.9) 03/04/24 05:10 Eos # (Auto) 0.2 10^3/uL (0.0-0.8) 03/04/24 05:10 Baso # (Auto) 0.1 10^3/uL (0.0-0.1) 03/04/24 05:10 Nucleated RBC % (auto) 0 % 03/04/24 05:10 Nucleated RBCs # 0.0 /100WBC 03/04/24 05:10 ESR 90 mm/hr (0-10) H 02/26/24 18:04 Sodium 139 mmol/L (136-145) 03/04/24 05:10 Potassium 4.6 mmol/L (3.5-5.1) 03/04/24 05:10 Chloride 104 mmol/L (98-107) 03/04/24 05:10 Carbon Dioxide 26 mmol/L (22-29) 03/04/24 05:10 Anion Gap 13.6 (5-19) 03/04/24 05:10 BUN 16 mg/dL (6-20) 03/04/24 05:10 Creatinine 0.8 mg/dL (0.7-1.2) 03/04/24 05:10 GFR Calculation 100.0 mL/min (90-130) 03/04/24 05:10 Glucose 138 mg/dL (65-115) H 03/04/24 05:10 POC Glucose 121 mg/dL (70-110) H 03/05/24 10:23 Estimat Average Glucose 151 02/28/24 05:17 Hemoglobin A1c 6.9 % (4.0-6.0) H 02/28/24 05:17 Calculated Osmolality 291 mOsm/kg (285-295) 03/04/24 05:10 Lactic Acid 2.2 mmol/L (0.5-2.2) 02/26/24 18:04 Lactic Acid (Sepsis) 1.7 mmol/L (0.5-2.2) 02/26/24 20:48 Calcium 8.2 mg/dL (8.5-10.5) L 03/04/24 05:10 Phosphorus 3.6 mg/dL (2.5-4.5) 02/29/24 05:02 Magnesium 2.2 mg/dL (1.7-2.3) 02/29/24 05:02 Total Bilirubin 0.5 mg/dL (0.15-1.2) 02/26/24 18:04 AST 30 U/L (0-40) 02/26/24 18:04 ALT 38 U/L (0-41) 02/26/24 18:04 Alkaline Phosphatase 79 U/L (40-130) 02/26/24 18:04 C-Reactive Protein 8.7 mg/L (0.0-4.9) H 03/04/24 05:10 Total Protein 7.1 g/dL (6.6-8.7) 02/26/24 18:04 Albumin 2.9 g/dL (3.5-5.2) L 02/26/24 18:04 Globulin 4.2 g/dL (1.3-4.6) 02/26/24 18:04 Vancomycin Trough 16.4 ug/mL (10-15) H 03/02/24 07:18 Vitals Last Vital Signs Temp 98.0 F 03/05/24 08:00 Pulse 74 03/05/24 08:00 Resp 17 03/05/24 08:00 BP 127/68 03/05/24 08:00 Pulse Ox 94 03/05/24 08:00 O2 Del Method Room Air 03/05/24 08:00 O2 Flow Rate 3 03/03/24 13:54 Discharge Plan Discharge Patient Disposition: Home Condition: Stable Prescriptions: New metformin 500 mg tablet 500 mg PO BIDWMEAL Qty: 120 3RF doxycycline hyclate 100 mg tablet 100 mg PO BID 10 Days Qty: 20 0RF amoxicillin-pot clavulanate 875-125 mg tablet 1 tab PO BID Qty: 20 0RF pantoprazole 20 mg tablet,delayed release (DR/EC) 20 mg PO DAILY 14 Days Qty: 30 0RF oxycodone 5 mg tablet 5 mg PO DAILY PRN (Reason: dressing change) Qty: 10 0RF Rx Instructions: Please take 20 minutes before dressing change Discharge Orders: Discharge Order (Routine); Ordered 03/05/24 Ordered By: Sirena Casas Other Ambulatory Orders: DME: Wound Vac (Order) Location: None Selected Ordered By: Juan Dumont Referrals: Juan Dumont MD [Physician] - 03/17/24 9:15 am Discharge Diet: Diabetic Discharge Activity: Limit activity as instructed Patient Instructions: Type 2 Diabetes, Diabetes and Diet, Foot Care for People with Diabetes (DC), Type 2 Diabetes in Adults: New Diagnosis (GEN), Acute Wound Care (DC), Opioid Safety, Post Anesthesia Care Activity Restrictions/Additional Instructions: Wet to dry dressing to left inner thigh daily. Cleanse wound with normal saline, apply saline damp kerlix to wound bed only. Cover iwth dry 4x4s and abd pad. tape dressing. Discharge Attestations Time Spent in Discharge Care*: less than 30 min Quality Metrics Clinical Quality Measures [ No reported AMI, CVA or VTE this stay] Coding Level of Care Code Acute Code for [facility] Fwd Diagnoses Morbid obesity E66.01 Diabetes E11.9 Soft tissue infection L08.9 Inguinal abscess L02.214
[2024-03-05 11:48] VITALS: BP 163/103; PULSE 85; RESP 18; TEMP 36.5; O2SAT 96
--- NOTE | 2024-03-05 12:17 | PC.NURSE ---
Discharge Note Patient discharged to home via private vehicle accompanied by . Discharge instructions reviewed with patient and/or payroll representative. Mobile pharmacy medications and/or prescriptions provided. Belongings/home medications returned.
[2024-03-05 12:18] VITALS: BP 163/103; PULSE 85; RESP 18; TEMP 36.5; O2SAT 96
== END 2024-03-05 12:19 | disposition home or self-care (01) | DRG 571 ==
LOC: ER 20:23 → MEDSURG 20:33
PROVIDERS: Internal Medicine; Admitting Provider Surgery; Emergency Provider Emergency Medicine; Visit Provider Surgery
PROC: 0J9M0ZZ Drainage of Left Upper Leg Subcutaneous Tissue and Fascia, Open Approach (ICD-10-PCS; principal; 2024-02-26 20:15)
PROC: 0KBR0ZZ Excision of Left Upper Leg Muscle, Open Approach (ICD-10-PCS; principal; 2024-02-28 08:40)
PROC: 0JBM0ZZ Excision of Left Upper Leg Subcutaneous Tissue and Fascia, Open Approach (ICD-10-PCS; principal; 2024-02-29 08:00)
PROC: 0JDM0ZZ Extraction of Left Upper Leg Subcutaneous Tissue and Fascia, Open Approach (ICD-10-PCS; principal; 2024-03-03 12:00)
DX: L02.214 Cutaneous abscess of groin (principal); L02.416 Cutaneous abscess of left lower limb; L02.224 Furuncle of groin; B96.89 Other specified bacterial agents as the cause of diseases classified elsewhere; E66.01 Morbid (severe) obesity due to excess calories; Z68.25 Body mass index [BMI] 25.0-25.9, adult; E11.65 Type 2 diabetes mellitus with hyperglycemia
CPT/HCPCS: 36415; 36416; 74177; 80048; 80053; 80202; 82962; 83036; 83605; 83735; 84100; 85025; 85651; 86140; 87040; 87070; 87075; 87077; 87150; 87176; 87205; 96365; 96367; 96372; 99285; J0131; J0330; J0692; J1100; J1170; J1650; J1815; J1885; J2185; J2250; J2371; J2405; J2470; J2543; J2704; J3010; J3370; J3372; J3490; J7030; J7120